=== PATIENT | female | born 1955 | race Caucasian/White ===

== ENCOUNTER 2024-05-22 20:03 | Emergency (ER) | payer MEDICARE ==
[~2024-05-22] VITALS: Ht 177.8 cm; Wt 101.4 kg
[2024-05-22 20:25] VITALS: BP 133/75; TEMP 97.9
[2024-05-22 22:03] LABS: PH 5.5 (5.0-8.5); URINE APPEARANCE CLEAR (CLEAR/HAZY); URINE BLOOD NEGATIVE (NEGATIVE); URINE COLOR Dark Yellow (YELLOW); URINE GLUCOSE NEGATIVE (NEGATIVE); URINE KETONE TRACE (NEGATIVE); URINE NITRATE POSITIVE (NEGATIVE); URINE PROTEIN(semi-quant) NEGATIVE (NEGATIVE)
[2024-05-22 22:21] LABS: COLLECTION METHOD CLEAN CATCH; URINE BACTERIA MODERATE /hpf (NONE SEEN); URINE RBC 0-2 /hpf (0-2); URINE WBC 0-2 /hpf (0-2)
[2024-05-22] MEDS ORDERED: Cefuroxime 250 MG TAB PO ONE (22:45)
[2024-05-22] MEDS ORDERED: CEFTIN500 MG PO (22:45)
[2024-05-22 23:00] VITALS: PULSE 71
== END 2024-05-22 23:00 | disposition home or self-care (01) ==
LOC: COL.ER 20:03
PROVIDERS: Nurse Practitioner Primary Care
DX: N39.0 Urinary tract infection, site not specified (principal); Z88.0 Allergy status to penicillin